=== PATIENT | male | born 1975 | race Caucasian/White ===

== ENCOUNTER 2020-04-29 06:33 | Outpatient (REF) | payer BC, SELFPAY ==
[2020-04-29 07:14] LABS: MANUAL DIFF FLAG NO
[2020-04-29 07:21] LABS: Basophils Percent Auto 0.5 % (0-2); Eosinophils Absolute Auto 0.1 X10*3/uL (0.0-0.4); Eosinophils Percent Auto 2.1 % (0-4); Hematocrit 45.8 % (42-52); Hemoglobin 15.5 g/dl (14.0-18.0); Imm Gran Abs Auto 0.01 X10*3/uL (0.00-0.03); Imm Gran Pct Auto 0.2 % (0.0-0.4); Lymphocytes Absolute Auto 2.3 X10*3/uL (1.2-4.9); Lymphocytes Percent Auto 34.2 % (20-40); Mean Corpuscular HGB Conc 33.8 g/dl (31.0-36.0); Mean Corpuscular Hemoglobin 32.4 pg (27.0-33.0); Mean Corpuscular Volume 95.6 fL (80-98); Mean Platelet Volume 10.1 fL (9.4-12.4); Monocytes Absolute Auto 0.5 X10*3/uL (0.1-1.2); Monocytes Percent Auto 7.7 % (2-11); Neutrophils Absolute Auto 3.7 X10*3/uL (2.0-8.3); Neutrophils Percent Auto 55.3 % (45-73); Platelet Count 256 X10*3/uL (160-400); Red Blood Count 4.79 X10*6/uL (4.60-5.80); Red Cell Distribution Width 11.6 % (11.0-16.0); White Blood Count 6.6 X10*3/uL (4.8-10.8)
[2020-04-29 07:40] LABS: Glucose Urine UA NEG (NEG); Leukocyte Esterase Urine NEG (NEG); Nitrite Urine NEG (NEG); Specific Gravity - Urine 1.025 (1.005-1.025); Urine Blood NEG (NEG); Urine Ketones NEG (NEG); Urine Protein NEG (NEG-TRACE)
[2020-04-29 07:42] LABS: Appearance Urine CLEAR; Color Urine YELLOW
[2020-04-29 08:04] LABS: Alanine Aminotransferase 28 U/L (0-40); Albumin Level 4.6 g/dL (3.5-5.0); Alkaline Phosphatase 67 U/L (39-117); Anion Gap 13 (12-20); Aspartate Amino Transferase 18 U/L (5-37); Bilirubin Total 0.4 mg/dL (0.0-1.0); Blood Urea Nitrogen 19 mg/dL (9-16); Calcium 9.5 mg/dL (8.4-10.2); Carbon Dioxide 25 mmol/L (22-29); Chloride 106 mmol/L (96-108); Cholesterol 184 mg/dL; Estimated Glomerular Filt Rate > 60; Glucose Fasting 108 mg/dL (60-99); HDL Cholesterol 38 mg/dL; LDL Cholesterol Calculated 98 mg/dl; Potassium 4.6 mmol/l (3.3-5.1); Sodium 139 mmol/L (135-145); Total Protein 7.1 g/dL (6.5-8.0); Triglycerides 243 mg/dL
[2020-04-29 08:24] LABS: Prostate Specific Antigen 0.37 ng/mL (<0.05-4.0)
== END 2020-04-29 06:34 | disposition home or self-care (01) ==
LOC: HO.LAB 06:33
PROVIDERS: Visit Provider Internal Medicine
DX: Z00.00 Encounter for general adult medical examination without abnormal findings (principal); E78.6 Lipoprotein deficiency
CPT/HCPCS: 36415; 80053; 80061; 81003; 84153; 85025

== ENCOUNTER 2021-07-10 10:58 | Outpatient (REF) | payer BC, SELFPAY ==
[2021-07-10 11:01] LABS: MANUAL DIFF FLAG NO
[2021-07-10 11:32] LABS: Basophils Percent Auto 0.4 % (0-2); Eosinophils Absolute Auto 0.1 X10*3/uL (0.0-0.4); Eosinophils Percent Auto 1.7 % (0-4); Hematocrit 44.8 % (42.0-52.0); Hemoglobin 14.7 g/dl (14.0-18.0); Imm Gran Abs Auto 0.01 X10*3/uL (0.00-0.03); Imm Gran Pct Auto 0.1 % (0.0-0.4); Lymphocytes Absolute Auto 3.3 X10*3/uL (1.2-4.9); Lymphocytes Percent Auto 47.5 % (20-40); Mean Corpuscular HGB Conc 32.8 g/dl (31.0-36.0); Mean Corpuscular Hemoglobin 32.2 pg (27.0-33.0); Mean Platelet Volume 10.6 fL (9.4-12.4); Monocytes Absolute Auto 0.5 X10*3/uL (0.1-1.2); Monocytes Percent Auto 7.1 % (2-11); Neutrophils Percent Auto 43.2 % (45-73); Platelet Count 228 X10*3/uL (160-400); Red Blood Count 4.57 X10*6/uL (4.60-5.80); Red Cell Distribution Width 12.1 % (11.0-16.0); White Blood Count 6.9 X10*3/uL (4.8-10.8)
[2021-07-10 11:49] LABS: Alanine Aminotransferase 47 U/L (0-40); Albumin Level 4.5 g/dL (3.5-5.0); Alkaline Phosphatase 58 U/L (39-117); Anion Gap 10 (12-20); Appearance Urine CLEAR; Aspartate Amino Transferase 22 U/L (5-37); Bilirubin Total 0.6 mg/dL (0.0-1.0); Blood Urea Nitrogen 17 mg/dL (9-16); Calcium 9.3 mg/dL (8.4-10.2); Carbon Dioxide 29 mmol/L (22-29); Chloride 106 mmol/L (96-108); Cholesterol 162 mg/dL; Color Urine YELLOW; Estimated Glomerular Filt Rate > 60; Glucose Fasting 90 mg/dL (60-99); Glucose Urine UA NEG (NEG); HDL Cholesterol 32 mg/dL; LDL Cholesterol Calculated 88 mg/dl; Leukocyte Esterase Urine NEG (NEG); Nitrite Urine NEG (NEG); PH 6.5 (5.0-8.0); Potassium 4.5 mmol/L (3.3-5.1); Sodium 140 mmol/L (135-145); Specific Gravity - Urine <= 1.005 (1.005-1.025); Triglycerides 211 mg/dL; Urine Blood NEG (NEG); Urine Ketones NEG (NEG); Urine Protein NEG (NEG-TRACE)
[2021-07-10 12:13] LABS: PSA,Total (Free>4and<10) 0.35 ng/mL (0.00-4.00)
== END 2021-07-10 10:59 | disposition home or self-care (01) ==
LOC: HO.LNP 10:58
PROVIDERS: Visit Provider Internal Medicine
DX: Z00.00 Encounter for general adult medical examination without abnormal findings (principal); Z12.5 Encounter for screening for malignant neoplasm of prostate; E78.6 Lipoprotein deficiency
CPT/HCPCS: 80053; 80061; 81003; 84153; 85025

== ENCOUNTER 2022-01-15 09:21 | Day surgery (SDC) | payer BC, SELFPAY ==
--- NOTE | 2022-01-14 12:35 | P.CONAN_ITS ---
Documented by User: Angela Grant NP 01/14/22 12:36 HPI - Anesthesia Eval Consult details Narrative: 46yo M for Colonoscopy [facility] Past Medical History Medical History Anxiety Depression Surgical History Surgical History Hx of appendectomy Hx of cholecystectomy Social History Social History Patient Tobacco Use Status: Never used Tobacco Use of substances other than those prescribed or required for medical reasons: No Are you DNR?: No Advance Directives: No Advance Directives Information Provided: Yes Meds Allergies Allergy/AdvReac Type Severity Reaction Status Date / Time No Known Allergies Allergy Unverified 01/13/22 10:56 Home Medications Medication Instructions Recorded Confirmed Last Taken Type bupropion HCl 150 mg tablet,12 hr 1 tab PO BID 01/14/22 01/15/22 Unknown History sustained-release lorazepam 1 mg tablet 1 tab PO BID PRN Anxiety 01/14/22 01/15/22 Unknown History paroxetine HCl 40 mg tablet 1 tab PO QAM 01/14/22 01/15/22 Unknown History multivitamin 1 tab PO DAILY 01/15/22 01/15/22 Unknown History omega-3 fatty acids-vitamin E 1 cap PO DAILY 01/15/22 01/15/22 01/07/22 History 1,000 mg capsule Exam Exam Date and Time: January 14, 2022 1235 Pertinent Lab Results Pertinent Lab Results: Laboratory Tests 07/10/21 07/10/21 07:30 07:30 WBC 6.9 Hgb 14.7 Hct 44.8 Plt Count 228 Sodium 140 Potassium 4.5 Chloride 106 Carbon Dioxide 29 BUN 17 H Creatinine 0.83 Assessment and Plan Assessment Anesthesia Assessment: Chart Reviewed Documented by User: Brittany Ellis MD 01/15/22 11:00 [facility] Past Medical History Medical History Anxiety Depression Surgical History Surgical History Hx of appendectomy Hx of cholecystectomy History of Problems with Anesthesia: No Social History Social History Patient Tobacco Use Status: Never used Tobacco Use of substances other than those prescribed or required for medical reasons: No Are you DNR?: No Advance Directives: No Advance Directives Information Provided: Yes Meds Allergies Allergy/AdvReac Type Severity Reaction Status Date / Time No Known Allergies Allergy Unverified 01/13/22 10:56 Home Medications Medication Instructions Recorded Confirmed Last Taken Type bupropion HCl 150 mg tablet,12 hr 1 tab PO BID 01/14/22 01/15/22 Unknown History sustained-release lorazepam 1 mg tablet 1 tab PO BID PRN Anxiety 01/14/22 01/15/22 Unknown History paroxetine HCl 40 mg tablet 1 tab PO QAM 01/14/22 01/15/22 Unknown History multivitamin 1 tab PO DAILY 01/15/22 01/15/22 Unknown History omega-3 fatty acids-vitamin E 1 cap PO DAILY 01/15/22 01/15/22 01/07/22 History 1,000 mg capsule Exam Airway Mallampati Class: II TM Dist: >3cm Neck ROM: Full Loose/Missing/Broken Teeth: No Heart: RRR Lungs: CTA Assessment and Plan Assessment Anesthesia Assessment: Anesthesia Plan Discussed Final Anesthetic Review History of Problems with Anesthesia: No NPO: Yes ASA Class: II Final Preanesthetic Review: Meds/Allgs Chart Reviewed, Consent Obtained/Reviewed and Anes Risks/Benef Reviewed Patient Risk: Low Procedure Risk: Low Anesthetic Plan Anesthetic Plan: MAC: Disposition: Standard PACU
[2022-01-15 10:12] VITALS: BMI 29.3
[2022-01-15 10:19] VITALS: BP 121/82; PULSE 71; RESP 15; TEMP 36.7; O2SAT 96
[2022-01-15] MEDS: Lactated Ringers 1,000 ML 100 ML IVCONT (10:27)
[2022-01-15 12:09] VITALS: BP 94/63; PULSE 69; RESP 20; TEMP 36.9; O2SAT 97
--- NOTE | 2022-01-15 12:09 | P.BOP_ITS ---
Brief Operative Note Date of Service: 01/15/22 Pre-op diagnosis: Screening Post-op diagnosis: other (Colon polyps) Procedure: Colonoscopy to the cecum and TI with hot snare polypectomies x 5. Surgeon: Mihri Gardner Anesthesia: MAC Was an Principal Librarian used for this Procedure?: No Estimated blood loss (mL): 2.0 Pathology: other (A. Polyp at 50cm B. Transverse colon polyp C. Ascending colon polyp D. Polyp at 30cm E. Rectal polyp) Condition: stable Disposition: PACU
[2022-01-15 12:24] VITALS: BP 114/77; PULSE 69; RESP 20; O2SAT 97
--- NOTE | 2022-01-16 01:50 | OP_ITS ---
SURGEON: Mihir Gardner MD INDICATIONS: The patient presents for evaluation of colorectal cancer screening. Full consent has been obtained from him for this, including risks of bleeding and perforation. PREOPERATIVE DIAGNOSIS: Colorectal cancer screening. POSTOPERATIVE DIAGNOSIS: PROCEDURE PERFORMED: Colonoscopy to the cecum and terminal ileum with hot snare polypectomy x 5. ESTIMATED BLOOD LOSS: COMPLICATIONS: ANESTHESIA: Monitored anesthesia care. ASSISTANTS: SPECIMENS: POSTOPERATIVE DIAGNOSES: Colorectal cancer screening, colon polyps, internal hemorrhoids. DESCRIPTION OF PROCEDURE: The patient was placed in the left lateral decubitus position. The digital rectal exam revealed no abnormalities. The Olympus video pediatric colonoscope was entered into the rectum and advanced easily to the cecum. Once in the cecum I did identify a normal-appearing cecal pouch with appendiceal orifice and a normal-appearing ileocecal valve. The terminal ileum was cannulated and appeared normal. The scope withdrawn back in the colon. The entire cecum and ileocecal valve appeared normal. The scope was slowly withdrawn assessing all mucosal surfaces carefully. Preparation was excellent. In the proximal ascending colon was an approximately 1.2 cm polyp, which was removed by hot snare polypectomy and then retrieved with a retrieval net and brought out of the patient. The scope was advanced back to the polypectomy site, which appeared clean, without any sign of residual polyp nor bleeding. In the transverse colon was an approximately 1.5 cm polyp, which was removed by hot snare polypectomy, and then again recovered by a retrieval net and brought out of the patient. The scope was advanced back to the polypectomy site, which appeared clean, without any sign of residual polyp nor bleeding. At 50 cm and at 30 cm were approximately 8 mm polyps, which were each removed by hot snare polypectomy and recovered by suction. Each polypectomy site appeared clean, without any sign of residual polyp nor bleeding. Of note, the polypectomy at 30 cm was difficult given the location and required turning him onto his back to get a better location for it. In the rectum, there was a 5 or 6 mm polyp, which was also removed by hot snare polypectomy and then recovered by suction. The polypectomy site appeared clean, without any sign of residual polyp nor bleeding. The scope was retroflexed visualizing internal hemorrhoids, but no other pathology. The rectal mucosa appeared normal. The scope was straightened and withdrawn from the patient. He tolerated the procedure well and was returned to the recovery area in stable condition. IMPRESSION: 1. Multiple colon polyps. 2. Internal hemorrhoids. PLAN: The results of the pathology will be checked. Given the size and number of the polyps, I would recommend a repeat colonoscopy in 1 year for surveillance. He was advised not to use any aspirin, NSAIDs, nor fish oil for at least 1 week. He will call me otherwise on a p.r.n. basis. This has been discussed with his . MD ROBERTO Ballard/MADDY / [id number] MTDD
== END 2022-01-15 12:55 | disposition home or self-care (01) ==
PROVIDERS: PCP Internal Medicine; Visit Provider Internal Medicine
PROC: 0DJD8ZZ Inspection of Lower Intestinal Tract, Via Natural or Artificial Opening Endoscopic (ICD-10-PCS; CPT 45378; principal; 2022-01-15 10:30)
DX: Z12.11 Encounter for screening for malignant neoplasm of colon (principal); D12.5 Benign neoplasm of sigmoid colon; D12.3 Benign neoplasm of transverse colon; D12.2 Benign neoplasm of ascending colon; K62.1 Rectal polyp; K64.8 Other hemorrhoids; F32.A Depression, unspecified; F41.1 Generalized anxiety disorder; Z90.49 Acquired absence of other specified parts of digestive tract; Z79.899 Other long term (current) drug therapy
CPT/HCPCS: 45385; 88305; J3010

== ENCOUNTER 2022-07-29 11:41 | Outpatient (REF) | payer BC, SELFPAY ==
[2022-07-29 11:44] LABS: MANUAL DIFF FLAG NO
[2022-07-29 11:53] LABS: Appearance Urine Clear; Color Urine Yellow; Glucose Urine UA Negative (Negative); Leukocyte Esterase Urine Negative (Negative); Nitrite Urine Negative (Negative); PH 7.5 (5.0-9.0); Specific Gravity - Urine <= 1.005 (1.005-1.025); Urine Blood Negative (Negative); Urine Ketones Negative (Negative); Urine Protein Negative (Neg-Trace)
[2022-07-29 11:55] LABS: Basophils Percent Auto 0.3 % (0-2); Eosinophils Absolute Auto 0.1 X10*3/uL (0.0-0.4); Eosinophils Percent Auto 1.8 % (0-4); Hematocrit 43.8 % (42.0-52.0); Hemoglobin 15.1 g/dl (14.0-18.0); Lymphocytes Absolute Auto 3.4 X10*3/uL (1.2-4.9); Lymphocytes Percent Auto 48.4 % (20-40); Mean Corpuscular HGB Conc 34.5 g/dl (31.0-36.0); Mean Corpuscular Hemoglobin 32.3 pg (27.0-33.0); Mean Corpuscular Volume 93.6 fL (80.0-98.0); Mean Platelet Volume 10.5 fL (9.4-12.4); Monocytes Absolute Auto 0.5 X10*3/uL (0.1-1.2); Monocytes Percent Auto 7.4 % (2-11); Neutrophils Percent Auto 42.1 % (45-73); Platelet Count 238 X10*3/uL (160-400); Red Blood Count 4.68 X10*6/uL (4.60-5.80); Red Cell Distribution Width 11.6 % (11.0-16.0)
[2022-07-29 11:59] LABS: Bacteria Urine None Seen (None Seen); Hyaline Casts Urine 0-2 /LPF (0-2); RBC Urine 0-2 /HPF (0-2); Squamous Epithelial Cell Urine 0-2 /HPF (0-2); WBC Urine 0-5 /HPF (0-5)
[2022-07-29 12:12] LABS: Alanine Aminotransferase 18 U/L (0-40); Albumin Level 4.5 g/dL (3.5-5.0); Alkaline Phosphatase 56 U/L (39-117); Anion Gap 13 (12-20); Aspartate Amino Transferase 17 U/L (5-37); Bilirubin Total 1.5 mg/dL (0.0-1.0); Blood Urea Nitrogen 16 mg/dL (9-16); Calcium 9.1 mg/dL (8.4-10.2); Carbon Dioxide 24 mmol/L (22-29); Chloride 108 mmol/L (96-108); Cholesterol 153 mg/dL; Estimated Glomerular Filt Rate > 60; Glucose Fasting 85 mg/dL (60-99); HDL Cholesterol 35 mg/dL; LDL Cholesterol Calculated 102 mg/dl; Potassium 4.3 mmol/L (3.3-5.1); Sodium 141 mmol/L (135-145); Total Protein 6.8 g/dL (6.5-8.0); Triglycerides 81 mg/dL
[2022-07-29 12:23] LABS: PSA,Total (Free>4and<10) 0.38 ng/mL (0.00-4.00)
== END 2022-07-29 11:42 | disposition home or self-care (01) ==
LOC: HO.LNP 11:41
PROVIDERS: Visit Provider Internal Medicine
DX: Z00.00 Encounter for general adult medical examination without abnormal findings (principal); Z12.5 Encounter for screening for malignant neoplasm of prostate; E78.6 Lipoprotein deficiency; D72.820 Lymphocytosis (symptomatic)
CPT/HCPCS: 80053; 80061; 81001; 84153; 85025

== ENCOUNTER 2023-05-13 09:43 | Day surgery (SDC) | payer BC, SELFPAY ==
[2023-05-11 15:05] VITALS: BMI 30.5
--- NOTE | 2023-05-12 13:01 | HO.ANESPROP2 ---
Documented by User: Angela Grant NP 05/12/23 13:01 HPI - Anesthesia Eval Consult details Narrative: 47yo M for Colonoscopy [facility] Past Medical History Medical History Depression Anxiety Surgical History Surgical History (Updated 05/11/23 @ 15:04 by Tracy Dai RN) H/O colonoscopy Hx of appendectomy Hx of cholecystectomy History of Problems with Anesthesia: No Social History Social History Patient Tobacco Use Status: Never used Tobacco Advance Directives: No Advance Directives Information Provided: Yes Meds Allergies Allergy/AdvReac Type Severity Reaction Status Date / Time No Known Allergies Allergy Unverified 01/13/22 10:56 Home Medications Medication Instructions Recorded Confirmed Last Taken Type bupropion HCl 150 mg tablet,12 hr 1 tab PO BID 01/14/22 05/11/23 Unknown History sustained-release lorazepam 1 mg tablet 1 tab PO BID PRN Anxiety 01/14/22 05/11/23 Unknown History paroxetine HCl 40 mg tablet 1 tab PO QAM 01/14/22 05/11/23 Unknown History multivitamin 1 tab PO DAILY 01/15/22 05/11/23 Unknown History omega-3 fatty acids-vitamin E 1 cap PO DAILY 01/15/22 05/11/23 01/07/22 History 1,000 mg capsule Exam Height,Weight and Vital Signs: Height 6 ft 3 in Weight 110.677 kg Assessment and Plan Assessment Anesthesia Assessment: Chart Reviewed Final Anesthetic Review History of Problems with Anesthesia: No Documented by User: Ashlie Bowen MD 05/13/23 10:48 [facility] Past Medical History Medical History Depression Anxiety Family History Family history of problems with anesthesia: No Surgical History Surgical History (Updated 05/11/23 @ 15:04 by Tracy Urgo, RN) H/O colonoscopy Hx of appendectomy Hx of cholecystectomy Social History Social History Patient Tobacco Use Status: Never used Tobacco Advance Directives: No Advance Directives Information Provided: Yes Meds Allergies Allergy/AdvReac Type Severity Reaction Status Date / Time No Known Allergies Allergy Unverified 01/13/22 10:56 Home Medications Medication Instructions Recorded Confirmed Last Taken Type bupropion HCl 150 mg tablet,12 hr 1 tab PO BID 01/14/22 05/11/23 Unknown History sustained-release lorazepam 1 mg tablet 1 tab PO BID PRN Anxiety 01/14/22 05/11/23 Unknown History paroxetine HCl 40 mg tablet 1 tab PO QAM 01/14/22 05/11/23 Unknown History multivitamin 1 tab PO DAILY 01/15/22 05/11/23 Unknown History omega-3 fatty acids-vitamin E 1 cap PO DAILY 01/15/22 05/11/23 01/07/22 History 1,000 mg capsule Exam Airway Mallampati Class: II TM Dist: >3cm Neck ROM: Full Heart: rrr Lungs: cta Assessment and Plan Assessment Anesthesia Assessment: Anesthesia Plan Discussed Final Anesthetic Review Family History of Problems with Anesthesia: No NPO: Yes ASA Class: II Final Preanesthetic Review: No Changes in Pt Med Stat, Meds/Allgs Chart Reviewed and Consent Obtained/Reviewed Patient Risk: Intermediate Procedure Risk: Intermediate Anesthetic Plan Anesthetic Plan: MAC: Disposition: Standard PACU
[2023-05-13 10:25] VITALS: BMI 29.9
[2023-05-13 10:43] VITALS: BP 128/87; PULSE 76; RESP 16; TEMP 36.9; O2SAT 95
[2023-05-13] MEDS: Lactated Ringers 1,000 ML 100 ML IVCONT (10:57)
[2023-05-13 11:49] VITALS: BP 109/64; PULSE 76; RESP 12; TEMP 36.1; O2SAT 97
--- NOTE | 2023-05-13 11:53 | P.BOP_ITS ---
Brief Operative Note Date of Service: 05/13/23 Pre-op diagnosis: Screening Post-op diagnosis: other (Polyps) Procedure: Colonoscopy to the cecum and TI with cold snare polypectomy x 2, hot snare polypectomy x 1, and bx/removal of rectal polyp Surgeon: Mihir Gardner MD Anesthesia: MAC Was an Icing Machine Operator used for this Procedure?: No Estimated blood loss (mL): 2.0 Pathology: other (A. Transverse colon polyps B. Rectal polyp) Condition: stable Disposition: PACU
[2023-05-13 12:04] VITALS: BP 114/75; PULSE 78; RESP 16; TEMP 36.1; O2SAT 96
--- NOTE | 2023-05-13 12:06 | OP_ITS ---
DATE OF SERVICE: 05/13/2023 SURGEON: Mihir Gardner MD INDICATIONS: The patient presents for evaluation of personal history of colon polyps, family history of colon cancer, and colorectal cancer screening. Full consent obtained from him for the procedure, including risks of bleeding and perforation. PREOPERATIVE DIAGNOSIS: POSTOPERATIVE DIAGNOSIS: PROCEDURE PERFORMED: Colonoscopy to the cecum and terminal ileum with hot snare polypectomy x 1, cold snare polypectomy x 1, and biopsy/removal of polyp ESTIMATED BLOOD LOSS: COMPLICATIONS: ANESTHESIA: Monitored anesthesia care. ASSISTANTS: SPECIMENS: PREOPERATIVE DIAGNOSES: Personal history of colon polyps, family history colon cancer, and colorectal cancer screening. POSTOPERATIVE DIAGNOSES: Personal history of colon polyps, family history colon cancer, and colorectal cancer screening, colon polyps, internal hemorrhoids. DESCRIPTION OF PROCEDURE: The patient was placed in the left lateral decubitus position. The digital rectal exam revealed no abnormalities. The Olympus video pediatric colonoscope was entered into the rectum and advanced easily to the cecum. Once in the cecum, I did identify normal-appearing cecal pouch with appendiceal orifice and a normal-appearing ileocecal valve. The terminal ileum was cannulated and appeared normal. The scope was withdrawn back in the colon. The entire cecum and ileocecal valve appeared normal. The scope was slowly withdrawn assessing all mucosal surfaces carefully. Preparation was excellent. In the distal ascending colon was a flat, approximately 8 mm polyp, which was removed completely by hot snare polypectomy, but not recovered for pathology. The polypectomy site appeared clean, without any sign of residual polyp nor bleeding. In the transverse colon were 2 polyps approximately 4 or 5 mm in size, which were each removed by cold snare polypectomy and recovered by suction. The polypectomy sites appeared clean, without any sign of residual polyp nor any significant bleeding. In the rectum was a 3 mm polyp, which was biopsied and completely removed with cold biopsy forceps. I did not visualize any other polyps, colitis, or angiodysplasia. In the rectum, scope was retroflexed visualizing small internal hemorrhoids, but no other pathology. The rectal mucosa appeared normal. The scope was straightened and withdrawn from the patient. He tolerated the procedure well and was returned to recovery area in stable condition. IMPRESSION: 1. Colon polyps. 2. Internal hemorrhoids. PLAN: The results of the pathology will be checked. I would recommend a repeat colonoscopy within 3 years for further screening and surveillance. He was advised not to use any aspirin and NSAIDs for 1 week. MD ROBERTO Ballard/MADDY / [id number]
== END 2023-05-13 12:25 | disposition home or self-care (01) ==
PROVIDERS: PCP Internal Medicine; Visit Provider Internal Medicine
PROC: 0DJD8ZZ Inspection of Lower Intestinal Tract, Via Natural or Artificial Opening Endoscopic (ICD-10-PCS; CPT 45378; principal; 2023-05-13 11:00)
DX: Z12.11 Encounter for screening for malignant neoplasm of colon (principal); D12.3 Benign neoplasm of transverse colon; K62.1 Rectal polyp; K64.8 Other hemorrhoids; Z86.010 Personal history of colon polyps; Z80.0 Family history of malignant neoplasm of digestive organs
CPT/HCPCS: 45385; 45380; 88305; J2704

== ENCOUNTER 2023-08-04 10:47 | Outpatient (REF) | payer BC, SELFPAY ==
[2023-08-04 10:51] LABS: MANUAL DIFF FLAG NO
[2023-08-04 10:59] LABS: Basophils Percent Auto 0.4 % (0-2); Eosinophils Absolute Auto 0.1 X10*3/uL (0.0-0.4); Eosinophils Percent Auto 1.8 % (0-4); Hematocrit 43.8 % (42.0-52.0); Hemoglobin 15.3 g/dl (14.0-18.0); Imm Gran Abs Auto 0.02 X10*3/uL (0.00-0.03); Imm Gran Pct Auto 0.3 % (0.0-0.4); Lymphocytes Percent Auto 42.3 % (20-40); Mean Corpuscular HGB Conc 34.9 g/dl (31.0-36.0); Mean Corpuscular Hemoglobin 33.2 pg (27.0-33.0); Mean Platelet Volume 10.7 fL (9.4-12.4); Monocytes Absolute Auto 0.6 X10*3/uL (0.1-1.2); Neutrophils Absolute Auto 3.4 x10*3/uL (2.0-8.3); Neutrophils Percent Auto 47.2 % (45-73); Platelet Count 209 X10*3/uL (160-400); Red Blood Count 4.61 X10*6/uL (4.60-5.80); Red Cell Distribution Width 11.9 % (11.0-16.0); White Blood Count 7.1 X10*3/uL (4.8-10.8)
[2023-08-04 11:20] LABS: Appearance Urine Clear; Color Urine Yellow; Glucose Urine UA Negative (Negative); Leukocyte Esterase Urine Negative (Negative); Nitrite Urine Negative (Negative); Specific Gravity - Urine 1.015 (1.005-1.025); Urine Blood Negative (Negative); Urine Ketones Negative (Negative); Urine Protein Negative (Neg-Trace)
[2023-08-04 11:26] LABS: Bacteria Urine None Seen (None Seen); Hyaline Casts Urine 0-2 /LPF (0-2); RBC Urine 0-2 /HPF (0-2); Squamous Epithelial Cell Urine 0-2 /HPF (0-2); WBC Urine 0-5 /HPF (0-5)
[2023-08-04 11:30] LABS: PSA,Total (Free>4and<10) 0.35 ng/mL (0.00-4.00)
[2023-08-04 11:54] LABS: Alanine Aminotransferase 23 U/L (0-40); Albumin Level 4.5 g/dL (3.5-5.0); Alkaline Phosphatase 59 U/L (39-117); Anion Gap 11 (12-20); Aspartate Amino Transferase 20 U/L (5-37); Bilirubin Total 0.7 mg/dL (0.0-1.0); Blood Urea Nitrogen 14 mg/dL (9-16); Calcium 9.9 mg/dL (8.4-10.2); Carbon Dioxide 26 mmol/L (22-29); Chloride 107 mmol/L (96-108); Cholesterol 169 mg/dL (<200); Estimated Glomerular Filt Rate > 60; Glucose Fasting 94 mg/dL (60-99); HDL Cholesterol 38 mg/dL (>40); LDL Cholesterol Calculated 94 mg/dL (<100); Potassium 4.1 mmol/L (3.3-5.1); Sodium 140 mmol/L (135-145); Total Protein 7.2 g/dL (6.5-8.0); Triglycerides 189 mg/dL (<150)
== END 2023-08-04 10:48 | disposition home or self-care (01) ==
LOC: HO.LNP 10:47
PROVIDERS: Visit Provider Internal Medicine
DX: Z00.00 Encounter for general adult medical examination without abnormal findings (principal); E78.6 Lipoprotein deficiency; D72.820 Lymphocytosis (symptomatic); Z12.5 Encounter for screening for malignant neoplasm of prostate
CPT/HCPCS: 80053; 80061; 81001; 84153; 85025

== ENCOUNTER 2024-08-09 09:57 | Outpatient (REF) | payer BC, SELFPAY ==
[2024-08-09 10:00] LABS: MANUAL DIFF FLAG NO
[2024-08-09 10:06] LABS: Appearance Urine Clear; Basophils Percent Auto 0.3 % (0-2); Color Urine Yellow; Eosinophils Absolute Auto 0.1 X10*3/uL (0.0-0.4); Eosinophils Percent Auto 1.2 % (0-4); Glucose Urine UA Negative (Negative); Hematocrit 41.2 % (42.0-52.0); Hemoglobin 14.9 g/dl (14.0-18.0); Imm Gran Abs Auto 0.01 X10*3/uL (0.00-0.03); Imm Gran Pct Auto 0.1 % (0.0-0.4); Leukocyte Esterase Urine Negative (Negative); Lymphocytes Absolute Auto 3.2 X10*3/uL (1.2-4.9); Lymphocytes Percent Auto 41.6 % (20-40); Mean Corpuscular HGB Conc 36.2 g/dl (31.0-36.0); Mean Corpuscular Hemoglobin 32.9 pg (27.0-33.0); Mean Corpuscular Volume 90.9 fL (80.0-98.0); Mean Platelet Volume 10.4 fL (9.4-12.4); Monocytes Absolute Auto 0.7 X10*3/uL (0.1-1.2); Monocytes Percent Auto 8.6 % (2-11); Neutrophils Absolute Auto 3.7 x10*3/uL (2.0-8.3); Neutrophils Percent Auto 48.2 % (45-73); Nitrite Urine Negative (Negative); Platelet Count 262 X10*3/uL (160-400); Red Blood Count 4.53 X10*6/uL (4.60-5.80); Red Cell Distribution Width 11.8 % (11.0-16.0); Specific Gravity - Urine 1.025 (1.005-1.025); Urine Blood Negative (Negative); Urine Ketones Negative (Negative); Urine Protein Negative (Neg-Trace); White Blood Count 7.7 X10*3/uL (4.8-10.8)
[2024-08-09 10:09] LABS: Bacteria Urine None Seen (None Seen); Hyaline Casts Urine 0-2 /LPF (0-2); RBC Urine 0-2 /HPF (0-2); Squamous Epithelial Cell Urine 0-2 /HPF (0-2); WBC Urine 0-5 /HPF (0-5)
[2024-08-09 10:21] LABS: Alanine Aminotransferase 24 U/L (0-40); Albumin Level 4.6 g/dL (3.5-5.0); Alkaline Phosphatase 63 U/L (39-117); Anion Gap 12 (12-20); Aspartate Amino Transferase 23 U/L (5-37); Bilirubin Total 1.1 mg/dL (0.0-1.0); Blood Urea Nitrogen 17 mg/dL (9-16); Calcium 9.6 mg/dL (8.4-10.2); Carbon Dioxide 26 mmol/L (22-29); Chloride 106 mmol/L (96-108); Cholesterol 159 mg/dL (<200); Estimated Glomerular Filt Rate > 60; Glucose Fasting 95 mg/dL (60-99); HDL Cholesterol 41 mg/dL (>40); LDL Cholesterol Calculated 100 mg/dL (<100); Potassium 3.9 mmol/L (3.3-5.1); Sodium 140 mmol/L (135-145); Total Protein 7.2 g/dL (6.5-8.0); Triglycerides 90 mg/dL (<150)
[2024-08-09 10:41] LABS: PSA,Total (Free>4and<10) 0.52 ng/mL (0.00-4.00)
--- OUTSIDE RECORDS SUMMARY | 2024-08-09 10:57 | XMS_ITS ---
Author Organization [facility] Address [address] [place] [address] Care Team Providers Care School Bus Inspector Name Role Phone Francisco Quiroga MD Primary Care Provider Mihir Delacruz [phone] Allergies No Known Allergies REASON FOR VISIT Patient presents today for a recall colonoscopy Medications Medication SIG (Take, Route, Fr equency, Duration) Notes Start Date End Date Status Fish Oil 1000 MG 1 capsule Orally Onc e a day for 30 day(s) Active Multiple Vitamin - 1 tablet Orally Once a day for 30 day(s) Active PARoxetine HCl 40 MG 1 tablet in the mor kymberly Orally Once a day for 30 day(s) Active Ativan 1 MG 1 tablet at bedtime as needed Orally Once a day Active Wellbutrin SR 150 MG 1 tablet in the mor kymberly Orally Once a day for 30 day(s) Active Vitamin B 12 100 MCG as directed Orally Active Social History Tobacco Use: Social History Observation Description Date Details (start date - stop date) Never Smoker NA - NA Tobacco Use/Smoking Question Answer Notes Patient is a nonsmoker Alcohol Screen Question Answer Notes Did you have a drink contain ing alcohol in the past year? Yes How often did you have a dri nk containing alcohol in the past year? 2 to 4 times a month (2 points) How many drinks did you have on a typical day when you were drinking in the past year? 3 or 4 drinks (1 point) How often did you have 6 or more drinks on one occasion in the past year? Never (0 point) Points 3 Interpretation Negative Section Notes: Nonsmoker; no sig alcohol Problems Problem Type SNOMED Code ICD Code Onset Dates Problem Status W/U Status Risk Notes Problem [id number] History of adenomatous polyp of colon (Z86.010) Active confirmed Vital Signs Temperature 97.3 degrees Fahrenheit 02/16/20 23 Blood pressure systolic 000 mm Hg 02/16/20 23 Blood pressure diastolic 00 mm Hg 023 Height 75 in 02/15/2023 Weight 244 lbs 02/15/2023 BMI 30.49 kg/m2 02/15/2023 Encounters Encounter Location Date Provider Diagnosis [facility] [address] [place] [address] 02/15/2023 Mihir Gardner Colon cancer screeni ng Z12.11 ; Preprocedural examination Z01.818 and History of adenomatous polyp of colon Z86.010 Assessments Encounter Date Diagnosis (ICD Code) Assessment Notes Treatment Notes Treatment Clinical Notes Section Notes 02/15/2023 Colon cancer screening (ICD-10 - Z12.11) Stop fish oil for 1 week before the colonoscopy Overall, Richard appears well. Given his findings of significant polyps one year ago, as well as his family history of colon cancer, I did recommend a followup colonoscopy for further screening purposes. We did review the rationale for this in regard to colon cancer prevention. Full consent was obtained for this, including risks of bleeding and perforation. The procedure will be done with monitored anesthesia care. Richard was comfortable with this plan. Thank you again for allowing me to participate in Richard's care. I shall continue to keep you advised of his progress. 02/15/2023 Preprocedural examination (ICD-10 - Z01.818) Overall, Richard appears well. Given his findings of significant polyps one year ago, as well as his family history of colon cancer, I did recommend a followup colonoscopy for further screening purposes. We did review the rationale for this in regard to colon cancer prevention. Full consent was obtained for this, including risks of bleeding and perforation. The procedure will be done with monitored anesthesia care. Richard was comfortable with this plan. Thank you again for allowing me to participate in Richard's care. I shall continue to keep you advised of his progress. 02/15/2023 History of adenomatous polyp of colon (ICD-10 - Z86.010) Overall, Richard appears well. Given his findings of significant polyps one year ago, as well as his family history of colon cancer, I did recommend a followup colonoscopy for further screening purposes. We did review the rationale for this in regard to colon cancer prevention. Full consent was obtained for this, including risks of bleeding and perforation. The procedure will be done with monitored anesthesia care. Richard was comfortable with this plan. Thank you again for allowing me to participate in Richard's care. I shall continue to keep you advised of his progress. Plan Of Treatment Treatment Notes Assessment Notes Colon cancer screening Stop fish oil for 1 week before the colonoscopy Future Test Test Name Order Date COLONOSCOPY 02/15/2023 Next Appt Details Follow Up: prn, Reason: Progress Notes * RICHARD ARCEODOB: [birth year] (47 yo M)Acc No.[id number]:02/15/2023 Progress Notes Patient:?RICHARD ARCEO Provider:?Mihir Gardner MD :1975???Age:47 Y???Sex:Male Alcon e:02/15/2023 Address:[address] [place], [place] [id number] Pcp:Francisco Quiroga MD Subjective: * Chief Complaints: * ???Patient presents today fo r a recall colonoscopy * HPI: ???incontinence:? I saw Richard in the office today for evaluation of his personal history of colon polyps, family history of colon cancer, and need for colorectal cancer screening. ?I last saw Richard in January 2022, at which time he underwent a screening colonoscopy with removal of several polyps. Three of these were tubular adenomas and one was an approximately 1.5 cm tubulovillous adenoma. He does have a family history of his father having had colon cancer in his 70s. Richard presently feels well. He enjoys a good appetite, without any significant heartburn or dysphagia. His bowel movements have been regular, without any signs of bleeding. He denies abdominal pain, jaundice, nor weight loss. * ROS:?General/Constitutional:?Change in appetite?denies.?Chills?denies.?Fatigue?denies.?Ophthalmologic:?Comments?all negative.?ENT:?Comments?all negative.?Respiratory:?hemoptysis?denies.?Cough?denies.?Cardiovascular:?Chest pain?denies.?Orthopnea?denies.?Gastrointestinal:?Comments?See HPI for details.?Genitourinary:?Hematuria?denies.?Dysuria?denies.?Musculoskeletal:?Painful joints?denies.?Weakness?denies.?Skin:?Itching?denies.?Rash?denies.?Neurologic:?Headache?denies.?Seizures?denies.?Psychiatric:?Comments?all negative.? * Medical History:? * Surgical History:?Appendecto my 2001Gallbladder removal 2001 * Hospitalization/Major Diagno stic Procedure:?No Hospitalization History. * Family History:?Father: dece ased, In his 70's, diagnosed with Colon cancer.?Mother: .? * Social History:?Tobacco Use:?Tobacco Use/Smoking?Patient is a?nonsmoker.?Drugs/Alcohol:?Alcohol Screen?Did you have a drink containing alcohol in the past year??Yes,?How often did you have a drink containing alcohol in the past year??2 to 4 times a month (2 points),?How many drinks did you have on a typical day when you were drinking in the past year??3 or 4 drinks (1 point),?How often did you have 6 or more drinks on one occasion in the past year??Never (0 point),?Points?3,?Interpretation?Negative.?Miscellaneous:?Marital status: . Occupation: [employer] consultant. ???Nonsmoker; no sig alcohol. * Medications:?TakingVitamin B 12 100 MCG Lozenge as directed Orally Fish Oil 1000 MG Capsule 1 capsule Orally Once a dayMultiple Vitamin - Tablet 1 tablet Orally Once a dayAtivan 1 MG Tablet 1 tablet at bedtime as needed Orally Once a dayWellbutrin SR 150 MG Tablet Extended Release 12 Hour 1 tablet in the morning Orally Once a dayPARoxetine HCl 40 MG Tablet 1 tablet in the morning Orally Once a dayMedication List reviewed and reconciled with the patientTaking Vitamin B 12 100 MCG Lozenge as directed Orally Taking Fish Oil 1000 MG Capsule 1 capsule Orally Once a dayTaking Multiple Vitamin - Tablet 1 tablet Orally Once a dayTaking Ativan 1 MG Tablet 1 tablet at bedtime as needed Orally Once a dayTaking Wellbutrin SR 150 MG Tablet Extended Release 12 Hour 1 tablet in the morning Orally Once a dayTaking PARoxetine HCl 40 MG Tablet 1 tablet in the morning Orally Once a dayMedication List reviewed and reconciled with the patient * Allergies:?N.K.D.A.yes[Aller gies Verified] Objective: * Vitals:?Wt: 244 lbs, Ht: 75 in, BMI:30.49 Index, BP: 000/00 mm Hg, Temp: 97.3. * Examination: ???General Examination: ?GENERAL APPEARANCE:?pleasant, well nourished, well developed, in no acute distress.?EYES:?sclera non-icteric.?ORAL CAVITY:?mucosa moist.?NECK/THYROID:?no cervical lymphadenopathy, neck supple.?SKIN:?nonjaundiced, no spider angiomata.?HEART:?S1, S2 normal.?LUNGS:?clear to auscultation bilaterally.?ABDOMEN:?normal bowel sounds, no guarding or rigidity, no guarding or rigidity, no masses palpable, soft, nontender, nondistended.?EXTREMITIES:?no edema.?NEUROLOGIC:?alert and oriented.? Assessment: * Assessment: 1.?Preprocedural examination - Z01.818 (Primary)?2.?Colon cancer screening - Z12.11?3.?History of adenomatous polyp of colon - Z86.010? Overall, Richard appears well . Given his findings of significant polyps one year ago, as well as his family history of colon cancer, I did recommend a followup colonoscopy for further screening purposes. We did review the rationale for this in regard to colon cancer prevention. Full consent was obtained for this, including risks of bleeding and perforation. The procedure will be done with monitored anesthesia care. Richard was comfortable with this plan. Thank you again for allowing me to participate in Richard's care. I shall continue to keep you advised of his progress. Plan: * Treatment: Notes: Stop fish oil for 1 week before the colonoscopy.?? * Procedure Codes:?3017F COLOR ECTAL CA SCREEN DOC [id number] TOBACCO NON-[id number] BP SCR NOT PRFRM REC REASON NOS * Preventive Medicine:? ??Counseling:?Care goal follow-up plan:?Above Normal BMI Follow-up?Giving encouragement to exercise,?BMI management provided?Yes.? * Follow Up:?prn * * Sign off status: Completed true * Provider:?Mihir Gardner MD Date:? 023 Generated for Asia salazar/Beckie/eTransmitting on:?08/09/2024 10:57 AM EDT History and Physical Notes * HPI (History of Present Illness) Category Sub-Category Detail Notes Category Not es incontinence I saw Richard in the office today for evaluation of his personal history of colon polyps, family history of colon cancer, and need for colorectal cancer screening. I last saw Richard in January 2022, at which time he underwent a screening colonoscopy with removal of several polyps. Three of these were tubular adenomas and one was an approximately 1.5 cm tubulovillous adenoma. He does have a family history of his father having had colon cancer in his 70s. Richard presently feels well. He enjoys a good appetite, without any significant heartburn or dysphagia. His bowel movements have been regular, without any signs of bleeding. He denies abdominal pain, jaundice, nor weight loss. Examination Category Sub-Category Detail Notes Category Not es General Examination GENERAL APPEARANCE: pleasant , well nourished, well developed, in no acute distress HEAD: EYES: sclera non-icteric EARS: NOSE: THROAT: NECK/THYROID: no cervical lymphade nopathy, neck supple HEART: S1, S2 normal CHEST: LUNGS: clear to auscultatio n bilaterally ABDOMEN: normal bowel sounds, no guarding or rigidity, no guarding or rigidity, no masses palpable, soft, nontender, nondistended NEUROLOGIC: alert and oriented SKIN: nonjaundiced, no spi jem angiomata EXTREMITIES: no edema PERIPHERAL PULSES: BACK: BREASTS: MUSCULOSKELETAL: MALE GENITOURINARY: LYMPH NODES: RECTAL EXAM: FEMALE GENITOURINARY: ORAL CAVITY: mucosa moist
--- OUTSIDE RECORDS SUMMARY | 2024-08-09 10:57 | XMS_ITS | Patient Health Record ---
Author Organization Francisco Quiroga MD Address [address] [place], [place] [id number] Care Team Providers Care Manufacturing Engineer Assembly Name Role Phone Francisco Quiroga Primary Care Provider [phone] Allergies No Known Allergies Results Component Value Reference Range Notes Complete Blood Count Auto Di ff (Not yet reviewed by provider) Interpretation: Performing Lab:[facility], [address] [place] [phone] Notes/Report: White Blood Count 7.7 4.8-10.8 X10*3/uL Red Blood Count 4.53 4.60-5.80 X10*6/uL Hemoglobin 14.9 14.0-18.0 g/dl Hematocrit 41.2 42.0-52.0 % Mean Corpuscular Volume 90.9 80.0-98.0 fL Mean Corpuscular Hemoglobin 32.9 27.0-33.0 pg Mean Corpuscular HGB Conc 36.2 31.0-36.0 g/dl Red Cell Distribution Width 11.8 11.0-16.0 % Platelet Count 262 160-400 X10*3/uL Mean Platelet Volume 10.4 9.4-12.4 fL Neutrophils Percent Auto 48.2 45-73 % Imm Gran Pct Auto 0.1 0.0-0.4 % Lymphocytes Percent Auto 41.6 20-40 % Monocytes Percent Auto 8.6 2-11 % Eosinophils Percent Auto 1.2 0-4 % Basophils Percent Auto 0.3 0-2 % NRBC Pct Auto 0.0 0.0-0.2 /100WBC Neutrophils Absolute Auto 3.7 2.0-8.3 x10*3/u L Imm Gran Abs Auto 0.01 0.00-0.03 X10*3/uL Lymphocytes Absolute Auto 3.2 1.2-4.9 X10*3/u L Monocytes Absolute Auto 0.7 0.1-1.2 X10*3/uL Eosinophils Absolute Auto 0.1 0.0-0.4 X10*3/u L Basophils Absolute Auto 0.0 0.0-0.2 X10*3/uL NRBC Abs Auto 0.000 0.0-0.012 X10*3/uL Comprehensive [place]. Panel [facility] (Not yet reviewed by provider) Interpretation: Performing Lab:[facility], [address] [place] [phone] Notes/Report: Sodium 140 135-145 mmol/L Potassium 3.9 3.3-5.1 mmol/L Chloride 106 96-108 mmol/L Carbon Dioxide 26 22-29 mmol/L Anion Gap 12 12-20 Blood Urea Nitrogen 17 9-16 mg/dL Creatinine 0.79 0.5-1.4 mg/dL Estimated Glomerular Filt Rate > 60 Chronic Kidney Disease: Estimated GFR < 60 mL/min/1.73m2 Severe Kidney Disease: Estimated GFR < 15 mL/min/1.73m2 Glucose Fasting 95 60-99 mg/dL Calcium 9.6 8.4-10.2 mg/dL Bilirubin Total 1.1 0.0-1.0 mg/dL Aspartate Amino Transferase 23 5-37 U/L Alanine Aminotransferase 24 0-40 U/L Total Protein 7.2 6.5-8.0 g/dL Albumin Level 4.6 3.5-5.0 g/dL Alkaline Phosphatase 63 39-117 U/L Lipid Panel (Not yet reviewe d by provider) Interpretation: Performing Lab:[facility], [address] [place] [phone] Notes/Report: Triglycerides 90 <150 mg/dL Desirable Triglyceride: less than 150 mg/dL Borderline High Triglyceride 150-199 mg/dL High Triglyceride: 200-499 mg/dL Very High Triglyceride: greater than or equal to 5OO mg/dL Cholesterol 159 <200 mg/dL Desirable Cholesterol: less than 200 mg/dL Borderline High Cholesterol: 200-239 mg/dL High Cholesterol: greater than 239 mg/dL LDL Cholesterol Calculated 100 <100 mg/dL Desirable LDL: less than 100 mg/dL Near Optimal/Above Optimal LDL: 110-129 mg/dL Borderline High LDL: 130-159 mg/dL High LDL: 160-189 mg/dL Very High LDL: greater than or equal to 190 mg/dL HDL Cholesterol 41 >40 mg/dL Desirable HDL: greater than 40 mg/dL Note: This HDL assay may give artificially low results in patients with liver disease. PSA,Total (Free>4and<10) (No t yet reviewed by provider) Interpretation: Performing Lab:[address] [phone] Notes/Report: PSA,Total (Free>4and<10) 0.52 0.00-4.00 ng/mL A Free PSA was not performed: The percentage of Free PSA can be used to enhance the differentiation of prostate cancer from benign prostatic disease in subjects whose PSA levels are between 4.0 and 10.0 ng/mL. For subjects whose PSA levels are below 4.0 or above 10.0 ng/mL, the risk of prostate cancer is determined on the basis of the PSA alone. Therefore the % Free PSA is recommended only for those subjects whose PSA levels are between 4.0 and 10.0 ng/mL. PSA methodology: [place] Alinity i Chemiluminescent Microparticle Immunoassay (CMIA) UA ClnCatch+Micro w/rflx Cul t (Not yet reviewed by provider) Interpretation: Performing Lab:[facility], [address] [place] [phone] Notes/Report: Urine, Clean Catch Color Urine Yellow Appearance Urine Clear PH 6.0 5.0-9.0 Glucose Urine UA Negative Negative mg/dL Urine Blood Negative Negative Specific [place] - Urine 1.025 1.005-1.025 Urine Protein Negative Neg-Trace mg/dL Urine Ketones Negative Negative mg/dL Nitrite Urine Negative Negative Leukocyte Esterase Urine Negative Negative RBC Urine 0-2 0-2 /HPF WBC Urine 0-5 0-5 /HPF Squamous Epithelial Cell Urine 0-2 0-2 /HPF Bacteria Urine None Seen None Seen Hyaline Casts Urine 0-2 0-2 /LPF Occult Blood, Stool, Guaiac Reviewed date:08/11/2023 01:35:28 PM Interpretation:Negative Performing Lab: Notes/Report: Negative Occult Blood, Stool, Guaiac Neg Reason For Referral No Information Medications Medication SIG (Take, Route, Frequency, Duration) Notes Start Date End Date Status PARoxetine HCl 40 MG TAKE 1 TABLET BY AL UT EVERY DAY IN THE MORNING for 90 Active Ativan 1 MG 1 tablet as needed O rally 3 times a day 10/29/2022 Active Multivitamin Men - as directed Orally Active buPROPion HCl ER (SR) 150 MG TAKE 1 TABLET BY MOUTH TWICE A DAY for 90 Active Immunizations Vaccine Route Administration Date Status Comme nts Flu Vaccine Unknown 11/17/2010 Administered Flu Vaccine IM Intramuscular 12/05/2012 Administered Flu Vaccine IM Intramuscular 02/11/2014 Administered zFluzone Quadrivalent IM Intramuscular 03/10/2015 Administ ered Fluarix Quadrivalent IM Intramuscular 01/23/2016 Administe red Fluarix Quadrivalent IM Intramuscular 01/24/2017 Administe red TDaP IM Intramuscular 08/18/2017 Administered Given [facility] Fluarix Quadrivalent IM Intramuscular 12/29/2017 Administe red Fluarix Quadrivalent Unknown 02/02/2019 [facility]ered [facility] Fluarix Quadrivalent Unknown 01/18/2020 [facility]ered [facility] Covid Vaccine Unknown 07/05/2020 Administered Pfizer Covid Vaccine Unknown 06/14/2020 Administered Pfizer Fluarix Quadrivalent Unknown 02/23/2021 [facility]ered [facility] SARS-COV-2 Moderna Unknown 02/23/2021 [facility]ered [facility] SARS-COV-2 Moderna Unknown 02/23/2021 Administered Fluarix Quadrivalent IM Intramuscular 02/01/2022 Administe red SARS-COV-2 Moderna Unknown 04/16/2022 [facility]ered [facility] Fluarix Quadrivalent IM Intramuscular 12/23/2022 Administe red Fluarix Quadrivalent - 150 IM Intramuscular 12/13/2023 Administered Tetanus Unknown 08/18/2017 Pending Social History Tobacco Use: Social History Observation Description Date Details (start date - stop date) Never Smoker NA - NA Tobacco Use/Smoking Question Answer Notes Patient is a nonsmoker Additional Findings: Tobacco Non-User Cu rrent non-smoker, currently using no form of tobacco Alcohol Screen Question Answer Notes Did you have a drink contain ing alcohol in the past year? Yes How often did you have a dri nk containing alcohol in the past year? 2 to 4 times a month (2 points) How many drinks did you have on a typical day when you were drinking in the past year? 1 or 2 drinks (0 point) How often did you have 6 or more drinks on one occasion in the past year? Never (0 point) Points 2 Interpretation Negative Problems Problem Type SNOMED Code ICD Code Onset Dates Problem Status W/U Status Risk Notes Problem Lymphocytosis (D72.820) Active confirmed Problem 04385939 Depression (F32.9) Active confirmed Problem 13706830 Anxiety (F41.9) Active confirmed Problem 628929686 Body mass index (BMI) 30.0-30.9, adult (Z68.30) Active confirmed Problem 595592947 Low HDL (under 4 0) (E78.6) Active confirmed Problem 3785470 Tonsillith (J35.8) Active confirmed Problem 25890503 ARSH (obstructive sleep apnea) (G47.33) Active confirmed Vital Signs Blood pressure diastolic 82 mm Hg 02/16/2024 jamaal ght is down 5 pounds since 12-22-23 Height 75 in 02/16/2024 weight is down 5 pounds since 12-22-23 Blood pressure systolic 100 mm Hg 02/16/2024 weig ht is down 5 pounds since 12-22-23 Weight 226 lbs 02/16/2024 weight is down 5 pounds since 12-22-23 BMI 28.24 kg/m2 02/16/2024 weight is down 5 pounds since 12-22-23 Encounters Encounter Location Date Provider Diagnosis Francisco Quiroga MD [address] [place] [id number] 12/13/2023 Francisco Quiroga Encounter for immunization Z23 Francisco Quiroga MD [address] [place] [address] Drive [address] [place] [id number] 08/09/2024 Francisco Quiroga Blood tests for routine general physical examination Z00.00 ; Low HDL (under 40) E78.6 and Lymphocytosis D72.820 Francisco Quiroga MD [address] [place] [address] Drive [address] [place] [id number] 08/11/2023 Francisco Quiroga Anxiety F41.9 ; Annual physical exam Z00.00 ; Lymphocytosis D72.820 ; Depression F32.9 ; Low HDL (under 40) E78.6 ; Colon cancer screening Z12.11 and Depression screening Z13.31 Francisco Quiroga MD [address] [place] [id number] 12/22/2023 Francisco Quiroga Olecranon bursitis o f right elbow M70.21 Francisco Quiroga MD [address] [place] [id number] 02/16/2024 Francisco Quiroga Anxiety F41.9 and Olecranon bursitis of right elbow M70.21 Assessments Encounter Date Diagnosis (ICD Code) Assessment Notes Treatment Notes Treatment Clinical Notes Section Notes 12/13/2023 Encounter for immunization (ICD-10 - Z23) 08/09/2024 Blood tests for routine general physical examination (ICD-10 - Z00.00) 08/11/2023 Anxiety (ICD-10 - F41.9) has done amazingly well after his intense therapy, will continue current regiment 08/11/2023 Annual physical exam (ICD-10 - Z00.00) labs reviewed and discussed with patient 12/22/2023 Olecranon bursitis of right elbow (ICD-10 - M70.21) no warmth no tenderness. not infected will just use compression and will continue to monitor and advise office if it does not improve 02/16/2024 Anxiety (ICD-10 - F41.9) doing great, will continue current regiment 08/09/2024 Low HDL (under 40) (ICD-10 - E78.6) 08/11/2023 Lymphocytosis (ICD-10 - D72.820) has resolved 02/16/2024 Olecranon bursitis of right elbow (ICD-10 - M70.21) has resolved completely with a compression 08/09/2024 Lymphocytosis (ICD-10 - D72.820) 08/11/2023 Depression (ICD-10 - F32.9) stable, will continue current regiment 08/11/2023 Low HDL (under 40) (ICD-10 - E78.6) stable, no need for medication at this time, will continue to monitor 08/11/2023 Colon cancer screening (ICD-10 - Z12.11) guaiac negative 08/11/2023 Depression screening (ICD-10 - Z13.31) negative screen Plan Of Treatment Pending Test Test Name Order Date Electrocardiogram (EKG) 05/03/2019 Complete Blood Count Auto Diff 5 Comprehensive [place]. Panel Fast 5 Lipid Panel 08/09/2024 PSA,Total (Free>4and<10) 08/09/2024 UA ClnCatch+Micro w/rflx Cult 08/09/2024 Next Appt Details Provider Name:Francisco Roa ier, 08/16/2024 08:00:00 AM, [address] [place] [address], [address], [place], [place], [phone], Insurance Providers Payer Name Payer Address Payer Phone Subscriber Number Group Number Insured Name Patient Relationship to Insured Coverage Start Date Coverage End Date [employer] [address] [place], [place] [id number] Richard Wall Self - patient is the insured Medical (General) History Medical History History ICD Code colonocopy 01/15/22 repeat one year ( )Colonoscopy 05/13/23 repeat 3 y
--- OUTSIDE RECORDS SUMMARY | 2024-08-09 10:57 | XMS_ITS ---
Author Organization [facility] Address [address] [place] [phone] Care Team Providers Care Produce Specialist Name Role Phone Francisco Quiroga MD Primary Care Provider Mihir Delacruz [phone] REASON FOR VISIT screening Encounters Encounter Location Date Provider Diagnosis [facility] [place] [address] [place] [phone] 05/13/2023 Mihir Gardner Encounter for scre ening colonoscopy Z12.11 ; Colon polyps K63.5 ; Rectal polyp K62.1 ; Family history of colon cancer Z80.0 and Other hemorrhoids K64.8 Assessments Encounter Date Diagnosis (ICD Code) Assessment Notes Treatment Notes Treatment Clinical Notes Section Notes 05/13/2023 Encounter for screening colonoscopy (ICD-10 - Z12.11) 05/13/2023 Colon polyps (ICD-10 - K63.5) 05/13/2023 Rectal polyp (ICD-10 - K62.1) 05/13/2023 Family history of colon cancer (ICD-10 - Z80.0) 05/13/2023 Other hemorrhoids (ICD-10 - K64.8) Plan Of Treatment No Information Progress Notes * MIRTHA ARCEODOB: 7 (49 yo M)Acc No.[id number]:05/13/2023 COLON WITH MAC Patient:?MIRTHA ARCEO Provider:?Mihir Gardner MD :1975???Age:47 Y???Sex:Male Alcon e:05/13/2023 Address:[address] [place] [address] [id number] Pcp:Francisco Quiroga MD Subjective: * Chief Complaints: * ???1. Screening. * Medical History:? Objective: * Vitals:? Assessment: * Assessment: 1.?Encounter for screening c olonoscopy - Z12.11 (Primary)???2.?Colon polyps - K63.5???3.?Rectal polyp - K62.1???4.?Family history of colon cancer - Z80.0???5.?Other hemorrhoids - K64.8??? Plan: * Treatment: * Procedure Codes:?36623 LESIO N REMOVAL COLONOSCOPY, Modifiers: PT , 30507 COLONOSCOPY AND BIOPSY, Modifiers: 59 , PT * * The named appointment provid er may or may not be the originator of this progress note, and it is not deemed complete until electronically signed by the appointment provider. Sign off status: Pending * Provider:?Mihir Gardner MD Date:? 024 Generated for Asia salazar/Beckie/eTransmitting on:?08/09/2024 10:57 AM EDT
--- OUTSIDE RECORDS SUMMARY | 2024-08-09 10:57 | XMS_ITS ---
Author Organization Francisco Quiroga MD Address [address] [place] [phone] Care Team Providers Care Packaging Operator Name Role Phone Francisco Quiroga Primary Care Provider [phone] Allergies No Known Allergies REASON FOR VISIT 6 month Medications Medication SIG (Take, Route, Frequency, Duration) Notes Start Date End Date Status Ativan 1 MG 1 tablet as needed O rally 3 times a day 10/29/2022 Active PARoxetine HCl 40 MG TAKE 1 TABLET BY MO UT EVERY DAY IN THE MORNING for 90 Active Multivitamin Men - as directed Orally Active buPROPion HCl ER (SR) 150 MG TAKE 1 TABLET BY MOUTH TWICE A DAY for 90 Active Vital Signs Blood pressure systolic 100 mm Hg 02/16/20 24 Blood pressure diastolic 82 mm Hg 024 Height 75 in 02/16/2024 Weight 226 lbs 02/16/2024 BMI 28.24 kg/m2 02/16/2024 weight is down [address] [facility] boi 12-22-23 Encounters Encounter Location Date Provider Diagnosis Francisco Quiroga MD [address] [place] [phone] 02/16/2024 Francisco Quiroga Anxiety F41.9 and Olecranon bursitis of right elbow M70.21 Assessments Encounter Date Diagnosis (ICD Code) Assessment Notes Treatment Notes Treatment Clinical Notes Section Notes 02/16/2024 Anxiety (ICD-10 - F41.9) doing great, will continue current regiment 02/16/2024 Olecranon bursitis of right elbow (ICD-10 - M70.21) has resolved completely with a compression Plan Of Treatment Medication Medication Name Sig Start Date Stop Date Notes Ativan 1 MG 1 tablet as needed Orally 3 times a day 2022 Treatment Notes Assessment Notes Anxiety doing great, will co ntinue current regiment Olecranon bursitis of right elbow has re solved completely with a compression Next Appt Details Provider Name:Francisco Roa ier, 08/16/2024 08:00:00 AM, [address] [facility], [address], [place], [place], [phone], Progress Notes * MARIBELRichard TONYDOB: 7 (48 yo M)Acc No.[id number]:02/16/2024 Progress Notes Patient:?Richard Wall Provider:?Francisco Quiroga MD :1975???Age:48 Y???Sex:Male Alcon e:02/16/2024 Address:[address] [place], [place] [phone] Subjective: * Chief Complaints: * ???6 month * HPI: ???Symptom(s):? patient is a 48 yo male here for 6 month follow up. is doing well.. if gets down it only lasts couple days. listens to a podcast that is uplifting. * ROS:?General/Constitutional:?Denies?Chills.?Denies?Fatigue.?Denies?Fever.?Denies?Headache.?ENT:?Patient denies?decreased sense of smell , any loss of taste , sore throat.?Denies?Sore throat.?Respiratory:?Denies?Cough.?Denies?Shortness of breath at rest.?Denies?Shortness of breath with exertion.?Gastrointestinal:?Denies?Diarrhea.?Denies?Nausea.?Musculoskeletal:?Patient denies?muscle aches.?Peripheral Vascular:?Patient denies?red and blue toes.?Psychiatric:?Denies?Anxiety.?Denies?Depressed mood.? * Medical History:? * Surgical History:? * Hospitalization/Major Diagno stic Procedure:? * Medications:?TakingMultivita min Men - Tablet as directed Orally PARoxetine HCl 40 MG Tablet TAKE 1 TABLET BY MOUTH EVERY DAY IN THE MORNING Ativan 1 MG Tablet 1 tablet as needed Orally 3 times a daybuPROPion HCl ER (SR) 150 MG Tablet Extended Release 12 Hour TAKE 1 TABLET BY MOUTH TWICE A DAY Medication List reviewed and reconciled with the patientTaking Multivitamin Men - Tablet as directed Orally Taking PARoxetine HCl 40 MG Tablet TAKE 1 TABLET BY MOUTH EVERY DAY IN THE MORNING Taking Ativan 1 MG Tablet 1 tablet as needed Orally 3 times a dayTaking buPROPion HCl ER (SR) 150 MG Tablet Extended Release 12 Hour TAKE 1 TABLET BY MOUTH TWICE A DAY Medication List reviewed and reconciled with the patient * Allergies:?N.K.D.A.yes[Aller gies Verified] Objective: * Vitals:?Ht: 75, Wt:226, BMI: 28.24, BP:100/82 weight is down 5 pounds since 12-22-23. * Examination: ???General Examination: ?GENERAL APPEARANCE:?alert, well hydrated, in no distress.?HEAD:?normocephalic.?SKIN:?good turgor.?HEART:?no murmurs, rubs, gallops , regular rate and rhythm.?LUNGS:?no wheezes, rales, rhonchi , clear to auscultation bilaterally.? Assessment: * Assessment: 1.?Olecranon bursitis of rig ht elbow - M70.21 (Primary)?2.?Anxiety - F41.9? Plan: * Treatment: 2.?Anxiety? Continue Ativan Tablet, 1 MG, 1 tablet as needed, Orally, 3 times a day.?? Notes: doing great, will continue current regiment?? * Procedure Codes:? * * Sign off status: Completed true * Provider:?Francisco Quiroga MD Date:?04/17/2023 Generated for Asia salazar/Beckie/eTransmitting on:?08/09/2024 10:57 AM EDT History and Physical Notes * HPI (History of Present Illness) Category Sub-Category Detail Notes Category Not es Symptom(s) patient is a 48 yo male here for 6 month follow up. is doing well.. if gets down it only lasts couple days. listens to a podcast that is uplifting. Examination Category Sub-Category Detail Notes Category Not es General Examination GENERAL APPEARANCE: alert, w ell hydrated, in no distress HEAD: normocephalic HEART: no murmurs, rubs, ga llops , regular rate and rhythm LUNGS: no wheezes, rales, r honchi , clear to auscultation bilaterally SKIN: good turgor
--- OUTSIDE RECORDS SUMMARY | 2024-08-09 10:58 | XMS_ITS | Patient Health Record ---
Author Organization [facility] Address [address] [place] [address] Care Team Providers Care Home Aide Name Role Phone Francisco Quiroga MD Primary Care Provider Mihir Delacruz Unavailable [phone] Allergies No Known Allergies Reason For Referral No Information Medications Medication SIG (Take, Route, Fr equency, Duration) Notes Start Date End Date Status Fish Oil 1000 MG 1 capsule Orally Onc e a day for 30 day(s) Active Multiple Vitamin - 1 tablet Orally Once a day for 30 day(s) Active Vitamin B 12 100 MCG as directed Orally Active PARoxetine HCl 40 MG 1 tablet in the mor kymberly Orally Once a day for 30 day(s) Active Ativan 1 MG 1 tablet at bedtime as needed Orally Once a day Active Wellbutrin SR 150 MG 1 tablet in the mor kymberly Orally Once a day for 30 day(s) Active Immunizations Vaccine Route Administration Date Status Comme nts Influenza Unknown 12/02/2021 Administered Social History Tobacco Use: Social History Observation [...] Negative Section Notes: Nonsmoker; no sig alcohol Nonsmoker; no sig alcohol Problems Problem Type SNOMED Code ICD Code Onset Dates Problem Status W/U Status Risk Notes Problem Colon cancer screening (859441447) Colon cancer screening (Z12.11) Active confirmed Problem 509472636 History of adenomatous polyp of colon (Z86.010) Active confirmed Problem Preprocedural examination (875524669565406) Preprocedural examination (Z01.818) Active confirmed Problem Family History of Cancer of Colon (Situation) (630021797) Family history of colon cancer (Z80.0) Active confirmed Plan Of Treatment Pending Test Test Name Order Date Pathology 05/13/2023 Future Test Test Name Order Date COLONOSCOPY 12/02/2021 COLONOSCOPY 02/15/2023 Insurance Providers Payer Name Payer Address Payer Phone Subscriber Number Group Number Insured Name Patient Relationship to Insured Coverage Start Date Coverage End Date [facility] [employer] [address] [place] [address] [id number] MIRTHA ARCEO Self - patient is the insured Medical (General) History Medical History History ICD Code Anxiety/Depression Denies [place],DM,CVA,Lung disease,renal dise ase Screening Colonoscopy in Jan with 4 polyps removed, including a 1.5 cm tubulovillous adenoma and 3 tubular adenomas Surgical History Surgery Date(Month/Year) Appendectomy 2000 Gallbladder removal 2001
--- OUTSIDE RECORDS SUMMARY | 2024-08-09 10:58 | XMS_ITS ---
Author Organization Francisco Quiroga MD Address [address] [place], [place] [phone] Care Team Providers Care Senior Cyber Intelligence Analyst Name Role Phone Francisco Quiroga Primary Care Provider Results Component Value Reference Range Notes Complete Blood Count Auto Di ff (Not yet reviewed by provider) Interpretation: Performing Lab:[facility], [address] [place] [phone] Notes/Report: White Blood Count 7.7 4.8-10.8 X10*3/uL [...] NRBC Abs Auto 0.000 0.0-0.012 X10*3/uL Comprehensive [place]. Panel [facility] (Not yet reviewed by provider) Interpretation: Performing Lab:[facility], [address] [place] [phone] Notes/Report: Sodium 140 135-145 mmol/L Potassium 3.9 [...] yet reviewe d by provider) Interpretation: Performing Lab:[facility], [address] [place] [phone] Notes/Report: Triglycerides 90 <150 mg/dL Desirable Triglyceride: [...] t yet reviewed by provider) Interpretation: Performing Lab:[address] [phone] Notes/Report: PSA,Total (Free>4and<10) 0.52 0.00-4.00 ng/mL A [...] (Not yet reviewed by provider) Interpretation: Performing Lab:[facility], [address] [place] [phone] Notes/Report: Urine, Clean Catch Color Urine Yellow Appearance Urine Clear PH 6.0 5.0-9.0 Glucose Urine UA Negative Negative mg/dL Urine Blood Negative Negative Specific [facility] - Urine 1.025 1.005-1.025 Urine Protein Negative Neg-Trace mg/dL Urine Ketones Negative Negative mg/dL Nitrite Urine Negative Negative Leukocyte Esterase Urine Negative Negative RBC Urine 0-2 0-2 /HPF WBC Urine 0-5 0-5 /HPF Squamous Epithelial Cell Urine 0-2 0-2 /HPF Bacteria Urine None Seen None Seen Hyaline Casts Urine 0-2 0-2 /LPF REASON FOR VISIT yearly fasting labs Encounters Encounter Location Date Provider Diagnosis Francisco Quiroga MD [address] [facility] [address] [place], [place] [phone] 08/09/2024 Francisco Quiroga Blood tests for routine general physical examination Z00.00 ; Low HDL (under 40) E78.6 and Lymphocytosis D72.820 Assessments Encounter Date Diagnosis (ICD Code) Assessment Notes Treatment Notes Treatment Clinical Notes Section Notes 08/09/2024 Blood tests for routine general physical examination (ICD-10 - Z00.00) 08/09/2024 Low HDL (under 40) (ICD-10 - E78.6) 08/09/2024 Lymphocytosis (ICD-10 - D72.820) Plan Of Treatment Pending Test Test Name Order Date Complete Blood Count Auto Diff Comprehensive [place]. Panel Fast 5 Lipid Panel 08/09/2024 PSA,Total (Free>4and<10) 08/09/2024 UA ClnCatch+Micro w/rflx Cult 08/09/2024 Next Appt Details Provider Name:Francisco Roa ier, 08/16/2024 08:00:00 AM, [address] [facility], [address], [place], [place], [phone], Progress Notes * Richard ARCEODOB: 7 (49 yo M)Acc No.[id number]:08/09/2024 Progress Note Patient:?Richard ARCEO Provider:?Francisco Quiroga MD :1975???Age:49 Y???Sex:Male Alcon e:08/09/2024 Address:[address] [place] [phone] Subjective: * Chief Complaints: * ???1. Yearly fasting labs. * Medical History:? Objective: * Vitals:? Assessment: * Assessment: 1.?Blood tests for routine g eneral physical examination - Z00.00 (Primary)???2.?Low HDL (under 40) - E78.6???3.?Lymphocytosis - D72.820??? Plan: * Treatment: 2.?Low HDL (under 40)?LAB: Complete Blood Count Auto Diff (Collection Date & Time - 08/09/2024 07:15 AM) ?LAB: [facility] [place]. Panel Fast (Collection Date & Time - 08/09/2024 07:15 AM) ?LAB: Lipid Panel (Collection Date & Time - 08/09/2024 07:15 AM) ?LAB: PSA,Total (Free>4and<10) (Collection Date & Time - 08/09/2024 07:15 AM) ?LAB: UA ClnCatch+Micro w/rflx Cult (Collection Date & Time - 08/09/2024 07:15 AM) 3.?Lymphocytosis?LAB: Complete Blood Count Auto Diff (Collection Date & Time - 08/09/2024 07:15 AM) ?LAB: [facility] [place]. Panel Fast (Collection Date & Time - 08/09/2024 07:15 AM) ?LAB: Lipid Panel (Collection Date & Time - 08/09/2024 07:15 AM) ?LAB: PSA,Total (Free>4and<10) (Collection Date & Time - 08/09/2024 07:15 AM) ?LAB: UA ClnCatch+Micro w/rflx Cult (Collection Date & Time - 08/09/2024 07:15 AM) * Procedure Codes:?70723 VENIP UNCT, ROUTINE* * * The named appointment provid er may or may not be the originator of this progress note, and it is not deemed complete until electronically signed by the appointment provider. Sign off status: Pending * Provider:?Francisco Quiroga MD Date:?0 08/09/2024 Generated for Asia salazar/Beckie/Tamarasmitting on:?08/09/2024 10:58 AM EDT
--- OUTSIDE RECORDS SUMMARY | 2024-08-09 10:58 | XMS_ITS ---
Author Organization Francisco Quiroga MD Address [address] [place] [phone] Care Team Providers Care Standpipe Tender Name Role Phone Francisco Quiroga Primary Care Provider Allergies No Known Allergies REASON FOR VISIT right elbow swelling for 3 weeks Medications Medication SIG (Take, Route, Frequency, Duration) Notes Start Date End Date Status Ativan 1 MG 1 tablet as needed O rally 3 times a day 10/29/2022 Active PARoxetine HCl 40 MG TAKE 1 TABLET BY MO UT EVERY DAY IN THE MORNING for 90 Active buPROPion HCl ER (SR) 150 MG TAKE 1 TABLET BY MOUTH TWICE A DAY Active Multivitamin Men - as directed Orally Active Vital Signs Blood pressure systolic 122 mm Hg 12/22/19 24 Blood pressure diastolic 84 mm Hg 024 Height 75 in 12/22/2023 Weight 231 lbs 12/22/2023 BMI 28.87 kg/m2 12/22/2023 weight is down 14 pounds sin ce 08-11-23 Encounters Encounter Location Date Provider Diagnosis Francisco Quiroga MD [address] [place] [phone] 12/22/2023 Francisco Quiroga Olecranon bursitis of right elbow M70.21 Assessments Encounter Date Diagnosis (ICD Code) Assessment Notes Treatment Notes Treatment Clinical Notes Section Notes 12/22/2023 Olecranon bursitis of right elbow (ICD-10 - M70.21) no warmth no tenderness. not infected will just use compression and will continue to monitor and advise office if it does not improve Plan Of Treatment Treatment Notes Assessment Notes Olecranon bursitis of right elbow no war mth no tenderness. not infected will just use compression and will continue to monitor and advise office if it does not improve Next Appt Details Provider Name:Francisco Roa ier, 08/16/2024 08:00:00 AM, [address] [facility], [address], [place], [place], [phone], Progress Notes * ANTONETTERichard DURANDOB: 7 (48 yo M)Acc No.[id number]:12/22/2023 Progress Notes Patient:?Richard Wall Provider:?Francisco Quiroga MD :1975???Age:48 Y???Sex:Male Alcon e:12/22/2023 Address:[address] [place], [place] [phone] Subjective: * Chief Complaints: * ???Right elbow swelling for 3 weeks * HPI: ???Symptom(s):? patient is a 48 yo male here for a painless olecranon bursitis. * ROS:?General/Constitutional:?Denies?Chills.?Denies?Fatigue.?Denies?Fever.?Denies?Headache.?ENT:?Patient denies?decreased sense of smell , any loss of taste , sore throat.?Denies?Sore throat.?Respiratory:?Denies?Cough.?Denies?Shortness of breath at rest.?Denies?Shortness of breath with exertion.?Gastrointestinal:?Denies?Diarrhea.?Denies?Nausea.?Musculoskeletal:?Patient denies?muscle aches.?Peripheral Vascular:?Patient denies?red and blue toes.? * Medical History:? * Surgical History:? * Hospitalization/Major Diagno stic Procedure:? * Medications:?TakingMultivita min Men - Tablet as directed Orally PARoxetine HCl 40 MG Tablet TAKE 1 TABLET BY MOUTH EVERY DAY IN THE MORNING buPROPion HCl ER (SR) 150 MG Tablet Extended Release 12 Hour TAKE 1 TABLET BY MOUTH TWICE A DAY Ativan 1 MG Tablet 1 tablet as needed Orally 3 times a dayMedication List reviewed and reconciled with the patientTaking Multivitamin Men - Tablet as directed Orally Taking PARoxetine HCl 40 MG Tablet TAKE 1 TABLET BY MOUTH EVERY DAY IN THE MORNING Taking buPROPion HCl ER (SR) 150 MG Tablet Extended Release 12 Hour TAKE 1 TABLET BY MOUTH TWICE A DAY Taking Ativan 1 MG Tablet 1 tablet as needed Orally 3 times a dayMedication List reviewed and reconciled with the patient * Allergies:?N.K.D.A.yes[Aller gies Verified] Objective: * Vitals:?Ht: 75, Wt:231, BMI: 28.87, BP:122/84 weight is down 14 pounds since 08-11-23. * Examination: ???General Examination: ?GENERAL APPEARANCE:? alert, well hydrated, in no distress .?EXTREMITIES:? abnormal with a painless swelling of rt olecranon bursa.? Assessment: * Assessment: 1.?Olecranon bursitis of rig ht elbow - M70.21 (Primary)? Plan: * Treatment: * Procedure Codes:? * * Sign off status: Completed true * Provider:?Francisco Quiroga MD Date:?0 12/22/2023 Generated for Asia salazar/Beckie/Wilbert on:?08/09/2024 10:57 AM EDT History and Physical Notes * HPI (History of Present Illness) Category Sub-Category Detail Notes Category Not es Symptom(s) patient is a 48 yo male here for a painless olecranon bursitis Examination Category Sub-Category Detail Notes Category Not es General Examination GENERAL APPEARANCE: alert, w ell hydrated, in no distress EXTREMITIES: abnormal with a pain less swelling of rt olecranon bursa
== END 2024-08-09 09:58 | disposition home or self-care (01) ==
LOC: HO.LNP 09:57
PROVIDERS: Visit Provider Internal Medicine
DX: Z00.00 Encounter for general adult medical examination without abnormal findings (principal); Z12.5 Encounter for screening for malignant neoplasm of prostate; E78.6 Lipoprotein deficiency; D72.820 Lymphocytosis (symptomatic)
CPT/HCPCS: 80053; 80061; 81001; 84153; 85025